=== PATIENT | female | born 1950 | race Caucasian/White ===

== ENCOUNTER 2017-02-11 22:26 | Emergency (ER) | payer MEDICARE, OTHER ==
[2017-02-11 22:31] VITALS: RESP 18; O2SAT 95
--- NOTE | 2017-02-11 22:36 | EDPHY ---
H & P Stated Complaint: PEÑA NOT DRAINING. RESOLVED UPON ARRIVAL TO THE ER - Personal History Current Tetanus/Diphtheria Vaccine: Unsure Current Tetanus Diphtheria and Acellular Pertussis (TDAP): Unsure - Medical/Surgical History Hx Asthma: No Hx Chronic Respiratory Disease: No Hx Diabetes: No Hx Cardiac Disease: No Hx Renal Disease: No Hx Cirrhosis: No Hx Alcoholism: No Hx HIV/AIDS: No Hx Splenectomy or Spleen Trauma: No Other PMH: MS. WHEELCHAIR BOUND SINCE 2006. INDWELLING PEÑA SINCE 2007 - Social History Smoking Status: Never smoked Time Seen by Provider: 02/11/17 22:33 HPI/ROS: CHIEF COMPLAINT: Urinary retention, catheter not draining HISTORY OF PRESENT ILLNESS: 66-year-old female history of multiple sclerosis, wheelchair bound, history of chronic indwelling Peña catheter, arrives via ambulance for complaints of urinary retention/catheter not draining. At the time I examined the patient I was informed that the catheter is now draining. It is noted to be hazy which patient states is chronic. Denies: Fever, chills , nausea, vomiting, back or flank pain. PRIMARY CARE PROVIDER: Dr. Elaine Fierro, [facility] REVIEW OF SYSTEMS: A ten point review of systems was performed and is negative with the exception of the items mentioned in the HPI PAST MEDICAL & SURGICAL HISTORY: Multiple sclerosis, wheelchair bound, chronic indwelling Peña catheter SOCIAL HISTORY: PHYSICAL EXAM (Prior to examination, patient consented to physical exam, hands were washed and my usual and customary physical exam procedures followed) 1) GENERAL: Well-developed, well-nourished, alert and oriented. Appears nontoxic. 2) HEAD: Normocephalic, atraumatic 3) HEENT: Pupils equal, round, reactive to light bilaterally. Sclera anicteric. Nasopharynx, oropharynx, clear, no lesions. Moist mucous membranes 4) NECK: Full range of motion, no meningeal signs. 5) LUNGS: Clear auscultation bilaterally, no wheezes, no rhonchi, no retractions. 6) HEART: Regular rate and rhythm, no murmur, no heave, no gallop. 7) ABDOMEN: No guarding, no rebound, no focal tenderness, 8) MUSCULOSKELETAL: no discoloration 9) BACK: no visual or palpable abnormality. 10) SKIN: No rash, no petechiae. DIFFERENTIAL DIAGNOSIS: in no particular order including but not limited to acute urinary retention, cystitis, pyelonephritis, urosepsis (Villa Carter) Constitutional: Initial Vital Signs Temperature (C) 37.1 C 02/11/17 22:27 Heart Rate 87 02/11/17 22:27 Respiratory Rate 18 02/11/17 22:27 Blood Pressure 123/80 H 02/11/17 22:27 O2 Sat (%) 95 02/11/17 22:27 O2 Delivery Mode Room Air Allergies/Adverse Reactions: Penicillins Allergy (Verified 12/28/12 16:25) Home Medications: Medication Instructions Recorded DULoxetine [Cymbalta] 20 mg PO 12/28/12 GABAPENTIN 600 mg PO 12/28/12 Hydrocodone Bit/Acetaminophen 1 each PO 12/28/12 [Polygesic 5/500 Capsule] LEVOTHYROXINE SODIUM [Tirosint 75 75 mcg PO 12/28/12 mcg] Methadone HCl [Methadone Po] 0 mg PO 12/28/12 Metoclopramide [Reglan 10 mg tab 10 mg PO ACHS 12/28/12 (RX)] Baclofen 02/11/17 Cipro 02/11/17 Cymbalta 02/11/17 Nitrofurantoin Macrobid 02/11/17 Relistor 12 mg (*) 02/11/17 traZODone 02/11/17 Medical Decision Making ED Course/Re-evaluation: Re-evaluation with serial examinations. Reviewing the patient's medical chart she is on chronic Macrobid and ciprofloxacin. Will not add or change her antibiotic therapy at this point. Doubt urosepsis. Doubt pyelonephritis. Think the patient can be discharged home. She feels comfortable being discharged home. Care of patient under supervision of secondary supervising physician Dr Haider . (Villa Carter) Other Provider: PHYSICIAN DOCUMENTATION: The patient was evaluated and managed by the Physician Scientific Photographer. My co- signature indicates that I have reviewed this chart and I agree with the findings and plan of care as documented. I am the secondary supervising physician. (Whitney Haider) - Data Points Laboratory Results: 02/11/17 23:10 Urine Color YELLOW Urine Appearance MODERATELY TURBID Urine pH 7.0 (5.0-7.5) Ur Specific [place] 1.009 (1.002-1.030) Urine Protein 2+ H (NEGATIVE) Urine Ketones NEGATIVE (NEGATIVE) Urine Blood 2+ H (NEGATIVE) Urine Nitrate POSITIVE H (NEGATIVE) Urine Bilirubin NEGATIVE (NEGATIVE) Urine Urobilinogen NEGATIVE EU EU (0.2-1.0) Ur Leukocyte Esterase 3+ H (NEGATIVE) Urine RBC 25-50 /hpf H /hpf (0-3) Urine WBC 50-182 /hpf H /hpf (0-3) Ur Epithelial Cells TRACE /lpf /lpf (NONE-1+) Calcium Oxalate Crystal PRESENT /hpf /hpf (NONE-1+) Urine Bacteria 1+ /hpf H /hpf (NONE SEEN) Urine Mucus TRACE /lpf /lpf (NONE-1+) Urine Glucose NEGATIVE (NEGATIVE) Medications Given: Discontinued Medications Phenazopyridine HCl (Pyridium) 200 mg PO EDNOW ONE Stop: 02/11/17 23:36 Last Admin: 02/11/17 23:37 Dose: 200 mg Departure - Departure Disposition: Home, Routine, Self-Care Clinical Impression: Urinary retention Condition: Good Instructions: Acute Urinary Retention in Women (ED) Additional Instructions: Return to the emergency department if you feel like your Peña catheter is not draining, if you develop fevers, chills, flu-like symptoms or any other symptoms that concern you. Referrals: Follow-up, with your home health doctor in 2-3 days [Other] - As per Instructions
[2017-02-11] MEDS ORDERED: PHENAZOPYRIDINE HCL 200 MG TAB ONE (23:34)
[2017-02-11] MEDS ORDERED: PHENAZOPYRIDINE HCL 200 MG TAB PO ONE (23:35)
[2017-02-11 23:39] LABS: COLOR YELLOW; LEUKOCYTE ESTERASE,URINE 3+ (NEGATIVE); NITRITE,URINE POSITIVE (NEGATIVE)
[2017-02-11 23:40] VITALS: BP 132/81; PULSE 68; TEMP 98.2
[2017-02-11 23:46] LABS: BACTERIA 1+ /hpf (NONE SEEN); MUCUS TRACE /lpf (NONE-1+); RBC,URINE 25-50 /hpf (0-3); WBC,URINE 50-182 /hpf (0-3)
== END 2017-02-11 23:58 | disposition home or self-care (01) ==
LOC: EDUNIT#
DX: R33.9 Retention of urine, unspecified (principal)

== ENCOUNTER 2017-02-18 13:35 | Emergency (ER) | payer OTHER ==
--- NOTE | 2017-02-18 13:48 | EDPHY ---
H & P Time Seen by Provider: 02/18/17 13:47 - Medical/Surgical History Hx Asthma: No Hx Chronic Respiratory Disease: No Hx Diabetes: No Hx Cardiac Disease: No Hx Renal Disease: No Hx Cirrhosis: No Hx Alcoholism: No Hx HIV/AIDS: No Hx Splenectomy or Spleen Trauma: No Other PMH: MS. WHEELCHAIR BOUND SINCE 2006. INDWELLING PEÑA SINCE 2007 - Social History Smoking Status: Never smoked Constitutional: Initial Vital Signs Temperature (C) 36.8 C 02/18/17 13:48 Heart Rate 87 02/18/17 13:48 Respiratory Rate 16 02/18/17 13:48 Blood Pressure 129/79 H 02/18/17 13:48 O2 Sat (%) 92 02/18/17 13:48 O2 Delivery Mode Room Air Allergies/Adverse Reactions: Penicillins Allergy (Verified 02/18/17 13:51) Home Medications: Medication Instructions Recorded DULoxetine [Cymbalta] 20 mg PO 12/28/12 GABAPENTIN 600 mg PO 12/28/12 Hydrocodone Bit/Acetaminophen 1 each PO 12/28/12 [Polygesic 5/500 Capsule] LEVOTHYROXINE SODIUM [Tirosint 75 75 mcg PO 12/28/12 mcg] Methadone HCl [Methadone Po] 0 mg PO 12/28/12 Metoclopramide [Reglan 10 mg tab 10 mg PO ACHS 12/28/12 (RX)] Baclofen 02/11/17 Cipro 02/11/17 Cymbalta 02/11/17 Nitrofurantoin Macrobid 02/11/17 Relistor 12 mg (*) 02/11/17 traZODone 02/11/17 Medical Decision Making ED Course/Re-evaluation: CHIEF COMPLAINT: UTI HISTORY OF PRESENT ILLNESS: The patient is a 66 y/o female arriving with her family member complaining of spasming urethral pain for over a week. She has a history of MS and has been wheelchair-bound since 2006. She has required a Peña catheter since 2007 and changes it once per month. She denies prior issues with recurrent urinary infections. She has associated gross hematuria. She denies fever, chills, nausea, vomiting, or other systemic symptoms. She used Pyridium this morning without alleviation. She also takes Baclofen for spasm. She was placed on Macrobid for this over a week ago. Her subsequent urine culture grew out Stenotrophomonas maltophilia, which is not sensitive to TMP-SMX or fluoroquinolones. REVIEW OF SYSTEMS: A 10 point review of systems was performed and is negative with the exception of the elements mentioned in the history of present illness. PHYSICAL EXAM: HR, BP, O2 Sat, RR. Temp noted General Appearance: Alert, well hydrated, appropriate, and non-toxic appearing. Head: Atraumatic without scalp tenderness or obvious injury Eyes: Pupils equal, round, reactive to light and accommodation, EOMI, no trauma , no injection. Nose: Atraumatic, no rhinorrhea, clear. Throat: There is no erythema or exudates, no lesions, normal tonsils, mucus membranes moist. Neck: Supple, nontender, no lymphadenopathy. Respiratory: No retractions, no distress, no wheezes, and no accessory muscle use. Lungs are clear to auscultation bilaterally. Cardiovascular: Regular rate and rhythm, no murmurs, rubs, or gallops. Good capillary refill all extremities. Gastrointestinal: Abdomen is soft, nontender, non-distended, no masses, no rebound, no guarding, no peritoneal signs. Peña in place Musculoskeletal: Normal active ROM of all extremities, atraumatic. Neurological: Alert, appropriate, and interactive. Baseline neurologic function. Skin: No rashes, good turgor, no nodules on palpation. Past medical history: MS, wheelchair-bound, UTI, Peña catheter Past surgical history: noncontributory Family history: noncontributory Social history: Family member at bedside. Dr. Elaine Ramirez DIFFERENTIAL DIAGNOSIS: The differential diagnosis for the patient's symptoms included but was not limited to urinary tract infection, viral syndrome, MS exacerbation, bacterial infection. MEDICAL DECISION MAKING: This is a 66 y/o female with a long history of a Peña catheter related to her MS complaining of urethral pain and spasm for over a week. A urine culture on grew out Stenotrophomonas maltophilia, which is not susceptible to TMP- SMX or fluoroquinolones. She has local symptoms only without evidence of systemic illness. Plan to consult with infectious disease regarding treatment options. She is declining pain medication at this time. 1407: Consulted with Dr. Gonzales, JORGE. She agrees this is likely chronic urinary colonization. She recommends pulling Peña for 1-2 weeks if patient is able to self-cath or use depends during this time. She does not recommend antibiotic treatment unless patient is febrile and has an elevated WBC. Plan for IV, labs, and UA. Urojet ordered for spasm during catheter removal. Patient does not have an elevated WBC and remains afebrile. RN was able to change out Peña for patient without significant pain. Plan for discharge with referral to PCP and urology to be considered for suprapubic catheter as discussed with ID. Discussed this with the patient and she agrees with followup recommendations. - Data Points Laboratory Results: Laboratory Results 02/18/17 14:38 02/18/17 14:38 02/18/17 02/18/17 02/18/17 14:38 14:38 13:52 WBC 8.01 10^3/uL 10^3/uL (3.80-9.50) RBC 5.41 10^6/uL H 10^6/uL (4.18-5.33) Hgb 13.9 g/dL g/dL (12.6-16.3) Hct 42.6 % % (38.0-47.0) MCV 78.7 fL L fL (81.5-99.8) MCH 25.7 pg L pg (27.9-34.1) MCHC 32.6 g/dL g/dL (32.4-36.7) RDW 14.6 % % (11.5-15.2) Plt Count 258 10^3/uL 10^3/uL (150-400) MPV 9.8 fL fL (8.7-11.7) Neut % (Auto) 75.0 % H % (39.3-74.2) Lymph % (Auto) 19.0 % % (15.0-45.0) [place] % (Auto) 5.2 % % (4.5-13.0) Eos % (Auto) 0.4 % L % (0.6-7.6) Baso % (Auto) 0.2 % L % (0.3-1.7) Nucleat RBC Rel Count 0.0 % % (0.0-0.2) Absolute Neuts (auto) 6.00 10^3/uL 10^3/uL (1.70-6.50) Absolute Lymphs (auto) 1.52 10^3/uL 10^3/uL (1.00-3.00) Absolute Monos (auto) 0.42 10^3/uL 10^3/uL (0.30-0.80) Absolute Eos (auto) 0.03 10^3/uL 10^3/uL (0.03-0.40) Absolute Basos (auto) 0.02 10^3/uL 10^3/uL (0.02-0.10) Absolute Nucleated RBC 0.00 10^3/uL 10^3/uL (0-0.01) Immature Gran % 0.2 % % (0.0-1.1) Immature Gran # 0.02 10^3/uL 10^3/uL (0.00-0.10) Sodium 134 mEq/L mEq/L (134-144) Potassium 4.1 mEq/L mEq/L (3.5-5.2) Chloride 96 mEq/L L mEq/L (97-110) Carbon Dioxide 27 mEq/l mEq/l (22-31) Anion Gap 11 mEq/L mEq/L (8-16) BUN 9 mg/dL mg/dL (7-23) Creatinine 0.4 mg/dL L mg/dL (0.6-1.0) Estimated GFR > 60 Glucose 85 mg/dL mg/dL (70-100) Calcium 9.2 mg/dL mg/dL (8.5-10.4) Urine Color ORANGE Urine Appearance CLEAR Urine pH TNP Ur Specific [place] 1.009 (1.002-1.030) Urine Protein NEGATIVE (NEGATIVE) Urine Ketones TNP Urine Blood TNP Urine Nitrate TNP Urine Bilirubin NEGATIVE (NEGATIVE) Urine Urobilinogen TNP Ur Leukocyte Esterase TNP Urine RBC 1-3 /hpf /hpf (0-3) Urine WBC 1-3 /hpf /hpf (0-3) Ur Epithelial Cells NONE SEEN /lpf /lpf (NONE-1+) Calcium Oxalate Crystal PRESENT /hpf /hpf (NONE-1+) Urine Mucus TRACE /lpf /lpf (NONE-1+) Urine Glucose NEGATIVE (NEGATIVE) Departure - Departure Disposition: Home, Routine, Self-Care Clinical Impression: UTI (urinary tract infection) Qualifiers: Urinary tract infection type: acute cystitis Hematuria presence: with hematuria Qualified Code(s): N30.01 - Acute cystitis with hematuria Condition: Good Instructions: Urinary Tract Infection in Women (ED) Additional Instructions: Follow up with Dr. Gonzales, infectious disease, in the next 2-3 days. Follow up with urologist in the next 2-3 days to discuss options for suprapubic catheter. Return to the ED for fever, severe pain, or other worsening of condition. Referrals: Manohar Quezada MD [Medical Doctor] - As per Instructions Patient,NotPresent [Unknown] - As per Instructions Cari Gonzales MD [Medical Doctor] - As per Instructions Report Scribed for: Ridge Bills Report Scribed by: Michelle Garcia Date of Report: 02/18/17 Time of Report: 14:09
[2017-02-18 13:50] VITALS: RESP 16; O2SAT 92
[2017-02-18 15:06] LABS: COLOR ORANGE
[2017-02-18 15:09] LABS: ANION GAP 11 mEq/L (8-16); CALCIUM 9.2 mg/dL (8.5-10.4); CARBON DIOXIDE 27 mEq/l (22-31); CHLORIDE 96 mEq/L (97-110); CREATININE 0.4 mg/dL (0.6-1.0); GLOMERULAR FILTRATION RATE > 60; GLUCOSE 85 mg/dL (70-100); POTASSIUM 4.1 mEq/L (3.5-5.2); SODIUM 134 mEq/L (134-144)
[2017-02-18] MEDS ORDERED: LIDOCAINE 2% JELLY 20 ML (UROJECT) ONE (15:16)
[2017-02-18 15:20] LABS: % IMMATURE GRANULYOCYTES 0.2 % (0.0-1.1); ABSOLUTE IMMATURE GRANULOCYTES 0.02 10^3/uL (0.00-0.10); ADD DIFF? NO; ADD MORPH? NO; ADD SCAN? NO; ATYPICAL LYMPHOCYTE FLAG 0 (0-99); FRAGMENT RBC FLAG 50 (0-99); HEMATOCRIT 42.6 % (38.0-47.0); HEMOGLOBIN 13.9 g/dL (12.6-16.3); LEFT SHIFT FLG 0 (0-99); LIPEMIA HEMOLYSIS FLAG 80 (0-99); MEAN CELL HEMOGLOBIN 25.7 pg (27.9-34.1); MEAN CELL HEMOGLOBIN CONCENTR. 32.6 g/dL (32.4-36.7); MEAN CELL VOLUME 78.7 fL (81.5-99.8); MEAN PLATELET VOLUME 9.8 fL (8.7-11.7); PLATELET CLUMPS FLAG 0 (0-99); PLATELET COUNT 258 10^3/uL (150-400); RED BLOOD CELL COUNT 5.41 10^6/uL (4.18-5.33); RED CELL DISTRIBUTION WIDTH 14.6 % (11.5-15.2)
[2017-02-18 15:29] LABS: MUCUS TRACE /lpf (NONE-1+)
[2017-02-18 16:08] VITALS: BP 133/82; PULSE 81; TEMP 98.1
--- NOTE | 2017-02-22 11:00 | ASMTCMCOM ---
CM Note CM Note Notes: Received request from ED buffing wheel raker to assist in helping patient get follow-up appts from her 02/18/17 ED visit. Patient's urine culture grew complicated bacteria that requires an ID follow-up and urology follow-up for possible suprapubic catheter placement. Spoke with patient and she said she called Dr Gonzales and Dr. Quezada's offices but they never returned her messages. This CM spoke with Maame at 's office at [facility] ([phone]) and she said she will contact patient directly and speak with (who was consulted during pt's ED visit) about getting her seen by the end of this week; verified they had pt's correct home phone #. This CM spoke with 's staff at [facility] ([phone]) and they will also contact patient directly in order to schedule an appointment DK this week. Patient aware that the offices will be calling her; provided this CM #[phone] to patient if further assistance is needed. Date Signed: 02/22/2017 11:00 AM Electronically Signed By:She Jimenez RN
--- NOTE | 2017-02-22 11:08 | ASDISCHSUM ---
Discharge Information Plan Status:Home with No Needs Medically Cleared to Leave: Discharge Date:02/18/2017 05:42 PM CM D/C Disposition: ADT D/C Disposition:Home, Routine, Self-Care Projected Discharge Date:02/18/2017 05:42 PM Transportation at D/C: Discharge Delay Reason: Follow-Up Date:02/18/2017 05:42 PM Discharge Slot: Final Diagnosis: Placement Information Patient Contact Information Contact Name:WILDER Relationship: Address:[address] [place] [address] City:[place] Alternate Phone: [facility]/Zip Code:[place] [address] Email: Financial Information Financial Class:Medicare Advantage Plans Primary Plan Desc:[facility] ADVANTAGE PLANS Primary Plan Number:[id number] Secondary Plan Desc: Secondary Plan Number: Assessment Information LACE LACE Emergency dept visits in Answers: 2 last 6 months Score: 2 Date Signed: 02/22/2017 11:01 AM Electronically Signed By:She Jimenez RN [facility] CM Progress Note CM Note CM Note Notes: Received request from ED pharmaceutical physician to assist in helping patient get follow-up appts from her 02/18/17 ED visit. Patient's urine culture grew complicated bacteria that requires an ID follow-up and urology follow-up for possible suprapubic catheter placement. Spoke with patient and she said she called Dr Gonzales and Dr. Quezada's offices but they never returned her messages. This CM spoke with Maame at 's office at [facility] ([phone]) and she said she will contact patient directly and speak with (who was consulted during pt's ED visit) about getting her seen by the end of this week; verified they had pt's correct home phone #. This CM spoke with 's staff at [facility] ([phone]) and they will also contact patient directly in order to schedule an appointment DK this week. Patient aware that the offices will be calling her; provided this CM #[phone] to patient if further assistance is needed. Date Signed: 02/22/2017 11:00 AM Electronically Signed By:She Jimenez RN Intervention Information
== END 2017-02-18 17:42 | disposition home or self-care (01) ==
LOC: EDUNIT#
DX: N30.01 Acute cystitis with hematuria (principal); B96.89 Other specified bacterial agents as the cause of diseases classified elsewhere

== ENCOUNTER → 2017-03-11 | Outpatient (CLI) | payer OTHER | LOC: FIMAGING 09:35 | PROVIDERS: ATTEND Specialist | DX: N20.0 Calculus of kidney (principal); I70.0 Atherosclerosis of aorta; Z96.0 Presence of urogenital implants; Z92.89 Personal history of other medical treatment ==

== ENCOUNTER 2017-05-26 10:31 | Day surgery (SDC) | payer OTHER ==
[~2017-05-26 10:31] MED LIST: cefTAZidime 1 GM/DEXTROSE 50 ML IV SCH
[2017-05-26] MEDS ORDERED: LIDOCAINE 1% 2 ML INJ ID PRN (10:54)
[2017-05-26] MEDS ORDERED: LR 1,000 ML IV ONE (10:54)
[2017-05-26] MEDS ORDERED: cefTAZidime PENTAHYDRATE 1 GM in NS 50 ML IV ONE (11:00)
[2017-05-26] MEDS ORDERED: cefTAZidime PENTAHYDRATE 2 GM in NS 100 ML IV ONE (11:00)
[2017-05-26] MEDS ORDERED: cefTAZidime 1 GM/DEXTROSE 50 ML IV SCH (11:00)
[2017-05-26] MEDS: BUPIVACAINE/EPI 0.5% 30 ML SDV ONE ×2 (11:30→14:00)
--- NOTE | 2017-05-26 11:36 | PDANEPAE ---
ANE History of Present Illness renal stones ANE Past Medical History - Cardiovascular History Hx Hypertension: No Hx Arrhythmias: No Hx Chest Pain: No Hx Coronary Artery / Peripheral Vascular Disease: No Hx CHF / Valvular Disease: No Hx Palpitations: No - Pulmonary History Hx COPD: No Hx Asthma/Reactive Airway Disease: No Hx Recent Upper Respiratory Infection: No Hx Oxygen in Use at Home: No Hx Sleep Apnea: No Sleep Apnea Screening Result - Last Documented: Negative - Neurologic History Hx Cerebrovascular Accident: No Hx Seizures: No Hx Dementia: No - Endocrine History Hx Diabetes: No Hypothyroid: Yes - Renal History Hx Renal Disorders: Yes Renal History Comment: NEUROGENIC BLADDER. HAS SOME SMALL STONES KIDNEY/BLADDER - Neurological & Psychiatric Hx Hx Neurological and Psychiatric Disorders: Yes Neurological / Psychiatric History Comment: DEPRESSION - Cancer History Hx Cancer: No - Congenital Disorder History Hx Congenital Disorders: No - GI History Hx Gastrointestinal Disorders: No - Other Health History Other Health History: MS LT ARM DOESN'T WORK. NEITHER LEGS SEPARATE. UNABLE TO STAND,OR TRANSFER. INDEPENDENTLY - Chronic Pain History Chronic Pain: Yes (WAIST DOWN DISCOMFORT) - Surgical History Prior Surgeries: HYSTERECTOMY. . APPY. TONSILLECTOMY. REMVL OLSEN NEUROMA ANE Review of Systems Review of Systems: - Exercise capacity METS (RN): 1 METS ANE Patient History - Allergies Allergies/Adverse Reactions: Penicillins Allergy (Mild, Verified 05/26/17 11:01) Rash - Home Medications Home Medications: DULoxetine [Cymbalta] 20 mg PO HS 12/28/12 [Last Taken 05/25/17 21:00] LEVOTHYROXINE SODIUM [Tirosint 75 mcg] 75 mcg PO DAILY06 12/28/12 [Last Taken 07:00] Methadone HCl [Methadone Po] 0 mg PO TID 12/28/12 [Last Taken 05/26/17 07:00] Metoclopramide [Reglan 10 mg tab (RX)] 10 mg PO TID 12/28/12 [Last Taken 18:30] RX: GABAPENTIN 600 mg PO TID 12/28/12 [Last Taken 05/26/17 07:00] Baclofen QID 02/11/17 [Last Taken 05/26/17 07:00] Nitrofurantoin Macrobid DAILY 02/11/17 [Last Taken 05/25/17 17:00] Relistor 12 mg (*) PO PRN 02/11/17 [Last Taken 05/22/17] traZODone HS 02/11/17 [Last Taken 05/25/17 21:00] Enablex DAILY AT 6PM 04/29/17 [Last Taken 05/25/17 18:30] Herbal Drugs DAILY 04/29/17 [Last Taken 05/25/17 13:00] - NPO status NPO Since - Liquids (Date): 05/25/17 NPO Since - Liquids (Time): 18:30 NPO Since - Solids (Date): 05/25/17 NPO Since - Solids (Time): 16:00 - Smoking Hx Smoking Status: Never smoked ANE Labs/Vital Signs - Vital Signs Blood Pressure: 123/72 Heart Rate: 78 Respiratory Rate: 16 O2 Sat (%): 91 Height: 157.48 cm Weight: 52.163 kg ANE Physical Exam - Airway Neck exam: FROM Mallampati Score: Class 2 Mouth exam: normal dental/mouth exam - Pulmonary Pulmonary: no respiratory distress - Cardiovascular Cardiovascular: regular rate and rhythym - ASA Status ASA Status: III ANE Anesthesia Plan Anesthesia Plan: general endotracheal anesthesia
[2017-05-26] MEDS ORDERED: ROCURONIUM 50 MG/5 ML VIAL ONE (11:50)
[2017-05-26] MEDS ORDERED: LIDOCAINE 2% 5 ML SDV ONE (11:50)
[2017-05-26] MEDS ORDERED: fentaNYL 100 MCG/2 ML INJ ONE ×2 (11:50→14:29)
[2017-05-26] MEDS ORDERED: PROPOFOL 200 MG/20 ML VIAL ONE (11:51)
[2017-05-26] MEDS: LIDOCAINE 2% JELLY 20 ML (UROJECT) ONE ×2 (12:00→14:00)
[2017-05-26] MEDS ORDERED: WATER FOR INJ.,BACTERIOSTATIC 30 ML MDV ONE (12:00)
--- NOTE | 2017-05-26 12:01 | PDHPUP ---
History & Physical Update H&P update statement: This history and physical update is based on an assessment of the patient which was completed after admission or registration (within 24 hours), but prior to the surgery/procedure. H&P update: no change in patient's condition since H&P completed
--- NOTE | 2017-05-26 12:02 | CPEKG ---
Heart Rate: 103 RR Interval: 583 QRSD Interval: 92 QT Interval: 325 QTC Interval: 426 QRS Lyman: -34 T Wave Lyman: 132 EKG Severity - ABNORMAL ECG - EKG Impression: SINUS RHYTHM WITH BASELINE ARTIFACT EKG Impression: LEFT AXIS DEVIATION EKG Impression: NONSPECIFIC T ABNORMALITIES, ANT-LAT LEADS Electronically Signed By: rTicia Antony 26-May-2017 13:32:07
[2017-05-26] MEDS ORDERED: SUGAMMADEX SODIUM 200 MG/2 ML VIAL IVP ONE (13:38)
[2017-05-26] MEDS ORDERED: OXYCODONE/APAP 5/325 TAB PO PRN (13:40)
[2017-05-26] MEDS ORDERED: HYDROmorphONE/DILAUDID 1 MG/ML INJ IVP PRN (13:40)
[2017-05-26] MEDS ORDERED: ONDANSETRON 4 MG/2 ML VIAL IVP PRN (13:40)
[2017-05-26] MEDS ORDERED: PROMETHAZINE HCL 25 MG/ML INJ IVP PRN (13:40)
[2017-05-26] MEDS ORDERED: fentaNYL 100 MCG/2 ML INJ IVP PRN (13:40)
[2017-05-26] MEDS ORDERED: NALOXONE HCL 0.4 MG/ML INJ IVP PRN (13:40)
[2017-05-26] MEDS ORDERED: BACITRACIN ZINC 14.2 GM OINTTUBE TP ONE (13:42)
--- NOTE | 2017-05-26 13:59 | POSTANESTH ---
Post Anesthetic Evaluation Cardiovascular Status: Normal, Stable Respiratory Status: Normal, Stable Level of Consciousness/Mental Status: Can Participate in Eval Pain Control: Adequate, Prn Tx Ordered Nausea/Vomiting Control: Adequate, Prn Tx Ordered Complications Possibly Related to Anesthesia: None Noted
[2017-05-26] MEDS ORDERED: HYDROCODONE/APAP 5/325 TAB PO PRN (14:33)
--- NOTE | 2017-05-26 14:33 | POSTOPPROG ---
Post Op Note Date of Operation: 05/26/17 Surgeon: Manohar Quezada (# [id number]) Anesthesia: GET(General Endotracheal) Pre-op Diagnosis: NGB, MS, urinary retention Post-op Diagnosis: NGB, MS, urinary retention, bladder calculi, bladder lesions Procedure: Cysto, bladder calculi removal, bladder bx's, SP tube placement Findings: See op note Inf/Abcess present in the surg proc area at time of surgery?: No EBL: Minimal (< 10 cc) Complications: None Drains: Other (24 Fr. SP tube) Specimen(s): Bladder Bx's
[2017-05-26 15:05] VITALS: TEMP 98.2
[2017-05-26 15:13] VITALS: BP 125/70; PULSE 79; RESP 16; O2SAT 90
--- NOTE | 2017-05-26 20:41 | GOP ---
[f rep st] OPERATIVE REPORT DATE OF OPERATION: 05/26/2017 SURGEON: Manohar Quezada MD ANESTHESIA: General endotracheal. PREOPERATIVE DIAGNOSIS: 1. Neurogenic bladder with chronic indwelling Richardson catheter. 2. Multiple sclerosis. POSTOPERATIVE DIAGNOSIS: 1. Neurogenic bladder with chronic indwelling Richardson catheter. 2. Multiple sclerosis. 3. Multiple small bladder calculi. 4. Abnormal bladder erythematous lesions. PROCEDURE PERFORMED: 1. Cystourethroscopy. 2. Bladder calculi removal. 3. Transurethral bladder biopsies with fulguration. 4. Formal suprapubic catheter placement. FINDINGS: 1. Patient has severe contractures involving her lower extremities and hips. Slight relaxation of t hese contractures was allowed under general anesthesia to successfully perform the surgery. 2. Somewhat patulous urethral meatus, likely as a result of chronic indwelling urethral Richardson cathet er. 3. Focal bladder mucosal erythema involving dome and anterior aspects. Biopsied as mentioned above. 4. Multiple small bladder calculi (evacuated during the course of the operation). SPECIMENS: Bladder biopsies. ESTIMATED BLOOD LOSS: Minimal. INDICATIONS: This woman has had an indwelling Richardson catheter for several years related to neurogenic bladder from multiple sclerosis. She has opted to undergo suprapubic catheter placement at this [facility]. The indications for the procedures as well as potential risks and complications were discussed wi th the patient preoperatively. She appeared to understand, her questions were answered, and she wish ed to proceed. Written informed surgical consent was thereafter obtained. DESCRIPTION OF PROCEDURE: The patient was brought to the operating room and administered general end otracheal anesthesia. She was placed in the supine position on the operating room table. We attempt ed to place the patient in low lithotomy position with King stirrups. However, because of severe lo wer extremity contractures involving her hips and knees, we were unable to abduct her legs sufficient ly enough to place them in King stirrups. We decided to use some padded U-shaped leg supports, leona g with the legs being supported by 2 operating room personnel throughout the case. This would allow for just enough exposure for me to be able to successfully perform cystoscopy and suprapubic catheter placement. After removing her existing indwelling Richardson catheter, the abdomen and genitalia were st erilely prepped and draped in standard fashion. With the patient carefully positioned as mentioned a shola, cystourethroscopy was performed with 30-degree and 70-degree lenses through a 22-Bulgarian sheath. Urethral meatus was somewhat patulous. Remainder of the urethra was unremarkable. Examination of the bladder revealed some small bladder calculi that were each no larger than approximately 4 or 5 mm . Ureteral orifices were normal in regard to shape and position along the trigone. Examination of t he remainder of the bladder revealed some increased focal polypoid-like erythema involving the dome m ucosa. This encompassed an area of the dome approximately 4-5 cm in diameter. This was likely relat ed to long-term indwelling catheterization mucosal changes. However, I would expect these type of mu cosal changes to be located more along the floor of the bladder. As a result, I decided to take some biopsies. After successfully removing all the bladder calculi, flexible biopsy forceps were used to obtain 3 sizable signs and displays sales representative biopsies from the abnormal erythematous lesions. I then inserted an Trendyol resectoscope with a 26-Bulgarian sheath and a button electrode. I then used bipolar coagulati on to cauterize all the biopsied areas successfully. After completing this portion of the procedure, the bladder wall was hemostatic. I then proceeded with suprapubic catheter placement. The bladder was completely filled through the c ystoscope and the cystoscope was withdrawn. The patient was placed in steep Trendelenburg position. A Lowsley retractor was then inserted through the urethra and used to tent up the anterior bladder w all just above the pubic symphysis in the midline. I then cut down onto the Lowsley through the lowe r abdominal wall, first with a scalpel and then using gentle spreading motion with a clamp, followed by electrocautery to cut through the anterior bladder wall. The Lowsley was then brought out through the anterior abdominal incision. A 24-Bulgarian Richardson catheter was secured to it with a 2-0 silk sutur e. The Lowsley and Richardson were then withdrawn back in the bladder and out through the urethra. The L ines was disconnected from the catheter and the catheter was pushed back into the bladder. 15 cc o f sterile fluid was placed in the balloon. Cystoscopy was then re-performed and the suprapubic kelvin ter was confirmed to be in excellent position along the anterior aspect of the bladder near the dome. I then secured the suprapubic catheter to the skin externally along the lower abdomen with a 2-0 si lk suture. It was dressed with bacitracin ointment followed by 4 x 4 gauze and tape. The catheter w as connected to bag drainage. The patient was then awakened, extubated, transferred to her bed, then taken to the recovery room. She tolerated the procedure well overall. COMPLICATIONS: None. DISPOSITION: She was transferred to the recovery room in stable condition and will be discharged wit h instructions to return the office in approximately 2 weeks for removal of silk suture and review of pathology results. /[id number]/MODL
--- NOTE | 2017-05-30 16:56 | CPEKG ---
Heart Rate: 161 RR Interval: 373 P-R Interval: 172 QRSD Interval: 82 QT Interval: 308 QTC Interval: 504 P Darwin: 97 QRS Darwin: -29 T Wave Darwin: 35 EKG Severity - ABNORMAL ECG - EKG Impression: Sinus TACHYCARDIA w artifact EKG Impression: BORDERLINE LEFT AXIS DEVIATION EKG Impression: BORDERLINE T ABNORMALITIES, ANT-LAT LEADS Preliminary Awaiting MD Review
== END 2017-05-26 16:40 | disposition home or self-care (01) ==
LOC: FSGY 10:31
PROVIDERS: ATTEND Specialist
DX: N31.9 Neuromuscular dysfunction of bladder, unspecified (principal); N21.0 Calculus in bladder; R33.9 Retention of urine, unspecified; E03.9 Hypothyroidism, unspecified; G35 Multiple sclerosis
CPT/HCPCS: J0713; J2704; J3010

== ENCOUNTER → 2018-10-20 | Outpatient (CLI) | payer OTHER | LOC: FIMAGING 10:23 ==